=== PATIENT | male | born 1990 | race Caucasian/White ===

== ENCOUNTER 2017-03-31 23:58 | Emergency (ER) | payer OTHER ==
[2017-04-01 01:42] VITALS: BP 121/65
== END 2017-04-01 01:42 | disposition home or self-care (01) ==
LOC: ED 23:58
DX: R07.89 Other chest pain (principal); F12.229 Cannabis dependence with intoxication, unspecified
CPT/HCPCS: J1885; Q0092

== ENCOUNTER 2017-09-02 22:31 | Emergency (ER) | payer OTHER ==
[~2017-09-02] VITALS: Ht 182.9 cm; Wt 100.2 kg
[2017-09-02 22:36] VITALS: Ht 182.9 cm; Wt 100.2 kg
[2017-09-02 23:18] VITALS: BP 136/68
== END 2017-09-02 23:19 | disposition home or self-care (01) ==
LOC: ED 22:31
DX: S62.001A Unspecified fracture of navicular [scaphoid] bone of right wrist, initial encounter for closed fracture (principal); V00.131A Fall from skateboard, initial encounter; Y93.89 Activity, other specified; Y92.89 Other specified places as the place of occurrence of the external cause; Y99.8 Other external cause status

== ENCOUNTER 2017-10-14 14:32 | Inpatient (IN) | payer OTHER ==
[~2017-10-14] VITALS: Ht 182.9 cm; Wt 97.1 kg
[2017-10-14 14:46] VITALS: Ht 182.9 cm; Wt 97.1 kg
[2017-10-14 15:54] LABS: BASOPHIL % 0.3 % (0-2); PLATELET COUNT 337 x10^3mcL (130-400); RED CELL DISTRIBUTION WIDTH 13.4 % (11.5-14.5)
[2017-10-14 16:01] LABS: CALCIUM 9.2 mg/dL (8.5-10.1); CARBON DIOXIDE 28.9 mmol/L (21-32); CHLORIDE SERUM 105 mmol/L (98-107); CREATININE SERUM 1.1 mg/dL (0.7-1.3); GFR1 > 60 mL/min; GLUCOSE SERUM 115 mg/dL (74-106); POTASSIUM SERUM 4.1 mmol/L (3.5-5.1); SODIUM SERUM 143 mmol/L (136-145)
[2017-10-14 16:05] LABS: ALBUMIN 4.5 g/dL (3.4-5.0); ALKALINE PHOSPHATASE 137 U/L (46-116); ALT/SGPT 25 U/L (16-63); AMYLASE 49 U/L (25-115); AST/SGOT 18 U/L (15-37); BILIRUBIN TOTAL 0.5 mg/dL (0.20-1.00); LIPASE 114 IU/L (73-393); TOTAL PROTEIN, SERUM 8.2 g/dL (6.4-8.2)
[2017-10-14 16:25] LABS: AMPHETAMINE QUAL UR NONE DETECTED
[2017-10-14 21:01] LABS: UA SPECIFIC GRAVITY 1.015 (1.005-1.035); microscopic required? YES; urine erythrocyte NEGATIVE (NEGATIVE)
[2017-10-14 21:06] VITALS: BP 110/56
[2017-10-14 21:26] LABS: T3 TOTAL 1.28 ng/mL
[2017-10-14 21:27] LABS: FREE T4 1.15 ng/dL (0.76-1.46); FREE THYROXINE INDEX 2.9 ug/dL (1.4-4.5); T4(THYROXINE) 8.2 ug/dL (4.7-13.3)
[2017-10-14 21:52] LABS: MAGNESIUM 1.9 mg/dL (1.8-2.4); PHOSPHOROUS 1.7 mg/dL (2.5-4.9)
[2017-10-14 22:04] LABS: CHOLESTEROL/HDL RATIO 2.9
[2017-10-15 05:30] VITALS: BP 117/54
[2017-10-15 06:46] LABS: BASOPHIL % 0.4 % (0-2); PLATELET COUNT 291 x10^3mcL (130-400); RED CELL DISTRIBUTION WIDTH 13.5 % (11.5-14.5)
[2017-10-15 06:55] LABS: CALCIUM 8.4 mg/dL (8.5-10.1); CARBON DIOXIDE 24.6 mmol/L (21-32); CHLORIDE SERUM 110 mmol/L (98-107); CREATININE SERUM 0.9 mg/dL (0.7-1.3); GFR1 > 60 mL/min; GLUCOSE SERUM 101 mg/dL (74-106); POTASSIUM SERUM 3.5 mmol/L (3.5-5.1); SODIUM SERUM 143 mmol/L (136-145)
== END 2017-10-15 09:14 | disposition left against medical advice (07) | DRG 241 ==
LOC: ED 14:32 → DU 20:11
PROVIDERS: Specialist; Student in an Organized Health Care Education/Training Program
DX: K29.60 Other gastritis without bleeding (principal); K76.0 Fatty (change of) liver, not elsewhere classified; N28.89 Other specified disorders of kidney and ureter; F17.210 Nicotine dependence, cigarettes, uncomplicated; F12.90 Cannabis use, unspecified, uncomplicated; F12.988 Cannabis use, unspecified with other cannabis-induced disorder
CPT/HCPCS: 83880; 84439; 99406; G0480; J1630; J1885; J2060; J2405; J3010; J3490; J7030; Q0092; Q9967

== ENCOUNTER 2019-05-20 16:07 | Emergency (ER) | payer MEDICAID ==
[~2019-05-20] VITALS: Ht 182.9 cm; Wt 102.1 kg
[2019-05-20 16:10] VITALS: Ht 182.9 cm; Wt 102.1 kg
[2019-05-20 17:00] VITALS: BP 158/83
== END 2019-05-20 17:00 | disposition home or self-care (01) ==
LOC: ED 16:07
DX: S20.211A Contusion of right front wall of thorax, initial encounter (principal); V43.62XA Car passenger injured in collision with other type car in traffic accident, initial encounter; Y93.89 Activity, other specified; Y92.411 Interstate highway as the place of occurrence of the external cause; Y99.8 Other external cause status

== ENCOUNTER 2019-06-18 15:14 | Emergency (ER) | payer MEDICAID ==
[~2019-06-18] VITALS: Ht 175.3 cm; Wt 103.4 kg
[2019-06-18 15:25] VITALS: Ht 175.3 cm; Wt 103.4 kg
[2019-06-18 16:04] LABS: AMPHETAMINE QUAL UR NONE DETECTED (See below)
[2019-06-18 17:16] VITALS: BP 138/75
== END 2019-06-18 17:16 | disposition home or self-care (01) ==
LOC: ED 15:14
PROVIDERS: Emergency Medicine
DX: G43.909 Migraine, unspecified, not intractable, without status migrainosus (principal)
CPT/HCPCS: J3030; Q0162

== ENCOUNTER 2020-02-24 16:31 | Emergency (ER) | payer MEDICAID ==
[~2020-02-24] VITALS: Ht 182.9 cm; Wt 95.3 kg
[2020-02-24 16:34] VITALS: Ht 182.9 cm; Wt 95.3 kg
[2020-02-24 19:01] VITALS: BP 122/71
== END 2020-02-24 19:01 | disposition home or self-care (01) ==
LOC: ED 16:31
DX: S51.812A Laceration without foreign body of left forearm, initial encounter (principal); F41.9 Anxiety disorder, unspecified; X58.XXXA Exposure to other specified factors, initial encounter; Y93.89 Activity, other specified; Y92.89 Other specified places as the place of occurrence of the external cause; Y99.8 Other external cause status
CPT/HCPCS: 90715; J2001

== ENCOUNTER 2020-02-26 18:39 | Emergency (ER) | payer MEDICAID ==
[~2020-02-26] VITALS: Ht 182.9 cm; Wt 89.4 kg
[2020-02-26 18:41] VITALS: Ht 182.9 cm; Wt 89.4 kg
[2020-02-26 19:11] VITALS: BP 115/66
== END 2020-02-26 19:11 | disposition home or self-care (01) ==
LOC: ED 18:39
DX: S51.812D Laceration without foreign body of left forearm, subsequent encounter (principal); F17.210 Nicotine dependence, cigarettes, uncomplicated; X58.XXXD Exposure to other specified factors, subsequent encounter